=== PATIENT | male | born 1985 | race African-American/Black ===

== ENCOUNTER 2021-12-23 11:36 | Day surgery (SDC) | payer OTHER ==
[~2021-12-23] VITALS: Ht 162.6 cm; Wt 89.8 kg
[~2021-12-23 11:36] MED LIST: DULO1CAP4 PO; MELO15TA28 PO; NS 1,000 ML IV ONE; SILD20TA50 PO; TIZA2CAP PO; sleeping pill PO
[2021-12-23 13:15] VITALS: BP 114/66
== END 2021-12-23 13:50 | disposition home or self-care (01) ==
LOC: M OPP 11:36
PROVIDERS: ATTEND Internal Medicine Gastroenterology
DX: K62.5 Hemorrhage of anus and rectum (principal); K64.0 First degree hemorrhoids; G47.33 Obstructive sleep apnea (adult) (pediatric); Z99.89 Dependence on other enabling machines and devices; Z79.1 Long term (current) use of non-steroidal anti-inflammatories (NSAID); Z79.899 Other long term (current) drug therapy

== ENCOUNTER → 2022-03-24 | Outpatient (REF) ==
[~2022-03-24] MED LIST changes: -NS 1,000 ML IV ONE
== END ==
LOC: M PLAIMG 10:05
PROVIDERS: ATTEND Internal Medicine
DX: Z11.52 Encounter for screening for COVID-19 (principal)